=== PATIENT | female | born 1980 ===

== ENCOUNTER 2017-03-07 11:55 | Emergency (ER) | payer OTHER ==
[2017-03-07 11:55] VITALS: BMI 21.9
[2017-03-07] MEDS ORDERED: Sodium Chloride 0.9% 1,000 ML IV ONE (12:44)
[2017-03-07 13:03] LABS: HCG,QUALITATIVE URINE NEGATIVE (NEGATIVE)
[2017-03-07 13:06] LABS: SQUAMOUS EPITHIAL 9 /hpf (0-5); URINE BILIRUBIN NEGATIVE (NEGATIVE); URINE BLOOD NEGATIVE (NEGATIVE); URINE CLARITY Hazy (Clear); URINE COLOR Straw (YELLOW); URINE GLUCOSE (UA) NORMAL (Normal); URINE LEUKOCYTE ESTERASE NEG Leu/uL (Negative); URINE NITRATE NEGATIVE (NEGATIVE); URINE PROTEIN NEGATIVE (NEGATIVE); URINE UROBILINOGEN NORMAL mg/dL (0.2-1.0)
[2017-03-07 13:56] LABS: BASO % 0.4 % (0.0-2.0); EOS # 0.1 K/uL (0.0-0.7); EOS % 1.3 % (0.0-4.0); HEMOGLOBIN 12.8 g/dL (11.0-16.0); LYMPH # 1.8 K/uL (1.0-4.3); LYMPH % 23.9 % (20.0-40.0); MEAN CELL VOLUME 91.1 fL (81.0-99.0); MEAN CORPUSCULAR HEMOGLOBIN 29.5 pg (27.0-31.0); MEAN CORPUSCULAR HGB CONC 32.4 g/dL (33.0-37.0); MEAN PLATELET VOLUME 8.5 fL (7.2-11.7); MONO # 0.6 K/uL (0.0-0.8); MONO % 8.6 % (0.0-10.0); NEUT % 65.8 % (50.0-75.0); NRBC % 0.1 % (0.0-2.0); RBC 4.34 Mil/uL (3.80-5.20); RED CELL DISTRIBUTION WIDTH 13.4 % (11.5-14.5); WHITE BLOOD COUNT 7.5 K/uL (4.8-10.8)
[2017-03-07 14:04] LABS: ALBUMIN 3.7 g/dL (3.5-5.0)
[2017-03-07 14:07] LABS: ALB/GLOB RATIO 1.1 (1.0-2.1); AST/SGOT 22 U/L (14-36); BLOOD UREA NITROGEN 6 mg/dL (7-17); GFR AFRICAN-AMERICAN > 60; GFR NON-AFRICAN AMERICAN > 60
[2017-03-07 14:08] LABS: ALT/SGPT 27 U/L (9-52); CALCIUM 8.5 mg/dl (8.6-10.4)
--- NOTE | 2017-03-07 15:20 | C.PDOC ---
History Of Present Illness 36 y/o female presents to the ED with complaints of intermittent headache x5 days, diffuse pain, 3/10. Pt also reports pain around her waist radiating to lower abdomen. Pt denies fever, chills, URI symptoms, nausea, vomiting, dysuria or any other complaints. No history of or STD. Time Seen by Provider: 03/07/17 12:42 Chief Complaint (Nursing): Headache History Per: Patient History/Exam Limitations: no limitations Onset/Duration Of Symptoms: Days, Intermittent Episodes Current Symptoms Are (Timing): Still Present Severity: Mild Pain Scale Rating Of: 3 Quality: "Pain" Recent travel outside of the [place]: No Past Medical History Reviewed: Historical Data, Nursing Documentation, Vital Signs Vital Signs: Last Vital Signs Temp 97.9 F 03/07/17 16:10 Pulse 68 03/07/17 16:10 Resp 20 03/07/17 16:10 BP 95/62 L 03/07/17 16:10 Pulse Ox 99 03/07/17 16:10 Family History: States: Unknown Family Hx - Social History Hx Alcohol Use: No Hx Substance Use: No - Immunization History Hx Tetanus Toxoid Vaccination: No Hx Influenza Vaccination: No Hx Pneumococcal Vaccination: No Review Of Systems Except As Marked, All Systems Reviewed And Found Negative. Constitutional: Negative for: Fever, Chills Eyes: Negative for: Vision Change Respiratory: Negative for: Cough, Shortness of Breath Gastrointestinal: Positive for: Abdominal Pain. Negative for: Nausea, Vomiting Genitourinary: Negative for: Dysuria, Hematuria Neurological: Positive for: Headache Physical Exam - Physical Exam Appears: Non-toxic, No Acute Distress Skin: Warm, Dry, No Rash Head: Atraumatic, Normacephalic Ear(s): Bilateral: Normal Nose: Normal Oral Mucosa: Moist Throat: Normal, No Erythema Neck: Normal, Normal ROM, Supple Chest: Symmetrical Cardiovascular: Rhythm Regular, No Murmur Respiratory: Normal Breath Sounds, No Rales, No Rhonchi, No Wheezing Gastrointestinal/Abdominal: Soft, Tenderness (mild suprapubic), No Guarding, No Rebound Back: No CVA Tenderness Pelvic: Normal External Exam, No Vaginal Bleeding, No Vaginal Discharge, No Cervical Motion Tenderness, No Adnexal Tenderness, No Mass Neurological/Psych: Oriented x3, Normal Speech, Normal Cognition ED Course And Treatment - Laboratory Results Result Diagrams: 03/07/17 13:40 03/07/17 13:40 O2 Sat by Pulse Oximetry: 100 (room air) Pulse Ox Interpretation: Normal Progress Note: Plan: labs, UA, toradol Disposition Counseled Patient/Family Regarding: Studies Performed, Diagnosis, Need For Followup - Disposition Referrals: [facility] [Outside] Disposition: HOME/ ROUTINE Disposition Time: 16:33 Condition: STABLE Additional Instructions: Siga en la clinica. Prescriptions: Ibuprofen [Motrin] 600 mg PO TID #15 tab Instructions: Acute Abdominal Pain (DC) Forms: General Discharge Instructions - Clinical Impression Clinical Impression: Headache, Abdominal pain - Scribe Statement The provider has reviewed the documentation as recorded by the Nancy Pemberton Provider Attestation: All medical record entries made by the Nancy were at my direction and personally dictated by me. I have reviewed the chart and agree that the record accurately reflects my personal performance of the history, physical exam, medical decision making, and the department course for this patient. I have also personally directed, reviewed, and agree with the discharge instructions and disposition.
[2017-03-07 16:35] VITALS: O2SAT 100
[2017-03-07 16:41] VITALS: BP 93/50; PULSE 70; RESP 18; TEMP 97.8
== END 2017-03-07 16:47 | disposition home or self-care (01) ==
LOC: C.ER 11:55
DX: R51 Headache (principal); R10.9 Unspecified abdominal pain
CPT/HCPCS: 80053; 81001; 84703; 85025; 96361; 96374; 99285; J1885; J7040

== ENCOUNTER 2017-12-23 10:21 | Emergency (ER) | payer OTHER ==
[2017-12-23 10:21] VITALS: BMI 21.9
[2017-12-23 10:38] VITALS: BP 99/61; PULSE 63; RESP 15; TEMP 98; O2SAT 99
--- NOTE | 2017-12-23 11:05 | C.PDOC ---
History Of Present Illness 36 year old female presents to the ED new onset lower back pain radiating to her lower abdomen for the past 2 days. Patient reports pain with movement and bending down. Patient state she has not taken any pain medication for her symptoms. Patient denies injury, fall, trauma, weakness, numbness, saddle anesthesia, urinary/bowel incontinence. Time Seen by Provider: 12/23/17 10:49 Chief Complaint (Nursing): Back Pain History Per: Patient History/Exam Limitations: no limitations Onset/Duration Of Symptoms: Days Current Symptoms Are (Timing): Still Present Quality Of Discomfort: "Pain" Associated Symptoms: None Exacerbating Factor(s): Movement Recent travel outside of the [place]: No Additional History Per: Patient Past Medical History Reviewed: Historical Data, Nursing Documentation, Vital Signs Vital Signs: Last Vital Signs Temp 98 F 12/23/17 10:36 Pulse 63 12/23/17 10:36 Resp 15 12/23/17 10:36 BP 99/61 L 12/23/17 10:36 Pulse Ox 99 12/23/17 11:36 - Medical History PMH: No Chronic Diseases Surgical History: No Surg Hx Family History: States: Unknown Family Hx - Social History Hx Alcohol Use: No Hx Substance Use: No - Immunization History Hx Tetanus Toxoid Vaccination: No Hx Influenza Vaccination: No Hx Pneumococcal Vaccination: No Review Of Systems Constitutional: Negative for: Fever, Chills Cardiovascular: Negative for: Chest Pain Respiratory: Negative for: Shortness of Breath Gastrointestinal: Negative for: Abdominal Pain Genitourinary: Negative for: Dysuria, Incontinence, Hematuria Musculoskeletal: Positive for: Back Pain Skin: Negative for: Rash Neurological: Negative for: Weakness, Numbness Physical Exam - Physical Exam Appears: Non-toxic, No Acute Distress Skin: Normal Color, Warm, Dry Head: Atraumatic, Normacephalic Eye(s): bilateral: Normal Inspection Nose: No Discharge Oral Mucosa: Moist Chest: Symmetrical Cardiovascular: Rhythm Regular, No Murmur Respiratory: Normal Breath Sounds, No Rales, No Rhonchi, No Wheezing Gastrointestinal/Abdominal: Soft, No Tenderness, No Guarding, No Rebound Back: Muscle Spasm (lower back), Other (reproducible pain with movement ) Extremity: Normal ROM, No Tenderness, Capillary Refill (< 2 seconds), No Swelling Pulses: Left Dorsalis Pedis: Normal, Right Dorsalis Pedis: Normal Neurological/Psych: Oriented x3, Normal Motor, Normal Sensation Gait: Steady ED Course And Treatment O2 Sat by Pulse Oximetry: 99 (On RA) Pulse Ox Interpretation: Normal Medical Decision Making Medical Decision Making: Impression: lower back pain Plan: * Pain meds * UA Disposition Counseled Patient/Family Regarding: Studies Performed, Diagnosis, Need For Followup, Rx Given - Disposition Referrals: [facility] [Outside] [facility] [Outside] Disposition: HOME/ ROUTINE Disposition Time: 11:44 Condition: IMPROVED Prescriptions: Cyclobenzaprine [Flexeril] 10 mg PO TID #15 tab Ibuprofen [Motrin] 600 mg PO Q6 #30 tab Lidocaine 5% [Lidoderm] 1 ea TD PRN PRN #10 patch PRN Reason: Pain, Moderate (4-7) Instructions: Low Back Pain (DC) Forms: [facility] [employer] (Frisian), Work Excuse Print Language: SWEDISH - Clinical Impression Clinical Impression: Low back pain - Scribe Statement The provider has reviewed the documentation as recorded by the Scribe Tushar Ferguson All medical record entries made by the Scribe were at my direction and personally dictated by me. I have reviewed the chart and agree that the record accurately reflects my personal performance of the history, physical exam, medical decision making, and the department course for this patient. I have also personally directed, reviewed, and agree with the discharge instructions and disposition.
[2017-12-23 11:16] LABS: HCG,QUALITATIVE URINE NEGATIVE (NEGATIVE)
[2017-12-23] MEDS ORDERED: Lidocaine 5% Patch TD STA (11:22)
[2017-12-23 11:26] LABS: SQUAMOUS EPITHIAL 4 /hpf (0-5); URINE BILIRUBIN NEGATIVE (NEGATIVE); URINE BLOOD NEGATIVE (NEGATIVE); URINE CLARITY Clear (Clear); URINE COLOR Straw (YELLOW); URINE GLUCOSE (UA) NORMAL (Normal); URINE LEUKOCYTE ESTERASE NEG Leu/uL (Negative); URINE PROTEIN NEGATIVE (NEGATIVE); URINE UROBILINOGEN NORMAL mg/dL (0.2-1.0)
[2017-12-23] MEDS ORDERED: Lidocaine 5% Patch TD ONE (11:32)
== END 2017-12-23 11:49 | disposition home or self-care (01) ==
LOC: C.ER 10:21
DX: M54.5 Low back pain (principal)
CPT/HCPCS: 81001; 84703; 96372; 99283; J1885

== ENCOUNTER 2018-08-29 13:09 | Emergency (ER) | payer SELFPAY ==
[2018-08-29 13:10] VITALS: BMI 21.9
[2018-08-29 13:17] VITALS: RESP 18; O2SAT 100
[2018-08-29 14:10] LABS: BASO # 0.1 K/uL (0.0-0.2); BASO % 1.1 % (0.0-2.0); EOS % 0.9 % (0.0-4.0); HEMOGLOBIN 12.3 g/dL (11.0-16.0); LYMPH # 2.2 K/uL (1.0-4.3); MEAN CELL VOLUME 91.4 fL (81.0-99.0); MEAN CORPUSCULAR HEMOGLOBIN 30.9 pg (27.0-31.0); MEAN CORPUSCULAR HGB CONC 33.8 g/dL (33.0-37.0); MEAN PLATELET VOLUME 8.4 fL (7.2-11.7); MONO # 0.5 K/uL (0.0-0.8); MONO % 10.1 % (0.0-10.0); NEUT # 2.4 K/uL (1.8-7.0); NEUT % 45.9 % (50.0-75.0); RBC 3.99 Mil/uL (3.80-5.20); RED CELL DISTRIBUTION WIDTH 13.3 % (11.5-14.5); WHITE BLOOD COUNT 5.3 K/uL (4.8-10.8)
[2018-08-29 14:15] LABS: SQUAMOUS EPITHIAL 8 /hpf (0-5); URINE BACTERIA RARE (<OCC); URINE BILIRUBIN NEGATIVE (NEGATIVE); URINE BLOOD NEGATIVE (NEGATIVE); URINE CLARITY Hazy (Clear); URINE COLOR Yellow (YELLOW); URINE GLUCOSE (UA) NORMAL (Normal); URINE LEUKOCYTE ESTERASE NEG Leu/uL (Negative); URINE PROTEIN NEGATIVE (NEGATIVE); URINE UROBILINOGEN NORMAL mg/dL (0.2-1.0)
[2018-08-29 14:18] LABS: HCG,QUALITATIVE URINE NEGATIVE (NEGATIVE)
[2018-08-29 14:22] LABS: ALB/GLOB RATIO 1.3 (1.0-2.1); ALBUMIN 3.9 g/dL (3.5-5.0); ALT/SGPT 20 U/L (9-52); AST/SGOT 21 U/L (14-36); BLOOD UREA NITROGEN 9 mg/dL (7-17); CALCIUM 8.5 mg/dl (8.6-10.4); GFR NON-AFRICAN AMERICAN > 60; LIPASE 61 U/L (23-300)
--- NOTE | 2018-08-29 14:40 | C.PDOC ---
History Of Present Illness 37 years old female presents to ED for complaints of RLQ abdominal pain associated with nausea and constipation that began 5 days ago. Denies any other complaints. Time Seen by Provider: 08/29/18 13:31 Chief Complaint (Nursing): Abdominal Pain History Per: Patient History/Exam Limitations: no limitations Onset/Duration Of Symptoms: Days (5) Current Symptoms Are (Timing): Still Present Location Of Pain/Discomfort: RLQ Radiation Of Pain To:: None Associated Symptoms: Nausea, Constipation. denies: Fever, Chills, Vomiting, Diarrhea Exacerbating Factors: None Alleviating Factors: None Last Bowel Movement: Today Recent travel outside of the [place]: No Abnormal Vaginal Bleeding: No Past Medical History Reviewed: Historical Data, Nursing Documentation, Vital Signs Vital Signs: Last Vital Signs Temp 98.1 F 08/29/18 13:14 Pulse 69 08/29/18 13:14 Resp 18 08/29/18 13:14 BP 101/65 08/29/18 13:14 Pulse Ox 100 08/29/18 13:14 - Medical History PMH: No Chronic Diseases Surgical History: No Surg Hx Family History: States: Unknown Family Hx - Social History Hx Alcohol Use: No Hx Substance Use: No - Immunization History Hx Tetanus Toxoid Vaccination: No Hx Influenza Vaccination: No Hx Pneumococcal Vaccination: No Review Of Systems Constitutional: Negative for: Fever, Chills Gastrointestinal: Positive for: Nausea, Abdominal Pain (RLQ), Constipation. Negative for: Vomiting, Diarrhea Genitourinary: Negative for: Dysuria Skin: Negative for: Rash Neurological: Negative for: Weakness, Numbness Physical Exam - Physical Exam Appears: Non-toxic, No Acute Distress Skin: Normal Color, Warm, Dry, No Rash Head: Atraumatic, Normacephalic Eye(s): bilateral: Normal Inspection, PERRL, EOMI Oral Mucosa: Moist Neck: Normal ROM, Supple Chest: Symmetrical, No Tenderness Cardiovascular: Rhythm Regular, No Murmur Respiratory: Normal Breath Sounds, No Rales, No Rhonchi, No Wheezing, Other (NARD) Gastrointestinal/Abdominal: Soft, Tenderness (RLQ ), No Guarding, No Rebound Extremity: Normal ROM Extremity: Bilateral: Atraumatic, Normal Color And Temperature, Normal ROM Pulses: Left Radial: Normal, Right Radial: Normal Neurological/Psych: Oriented x3, Normal Speech Gait: Steady ED Course And Treatment - Laboratory Results Result Diagrams: 08/29/18 14:04 08/29/18 14:04 O2 Sat by Pulse Oximetry: 100 (RA) Pulse Ox Interpretation: Normal - CT Scan/US CT Abdomen/Pelvis Other Rad Studies (CT/US): Read By Radiologist, Radiology Report Reviewed CT/US Interpretation: Date of service: 08/29/2018. PROCEDURE: CT Abdomen and Pelvis with contrast. HISTORY: RLQ PAIN. COMPARISON: Noncontrast abdomen pelvis CT 10/21/2015. TECHNIQUE: Following oral and intravenous contrast administration, a CT examination of the abdomen and pelvis performed from the domes of the diaphragms to the symphysis pubis with reformatted datasets provided not only axial but also sagittal and coronal series. Coronal and sagittal reformats were generated. Contrast dose: Visipaque 320, 100 cc. Radiation dose: Total exam DLP = 266.47 mGy-cm. This CT exam was performed using one or more of the following dose reduction techniques: Automated exposure control, adjustment of the mA and/or kV according to patient size, and/or use of iterative reconstruction technique. FINDINGS: LOWER THORAX: Unremarkable. LIVER: Unremarkable. No gross lesion or ductal dilatation. GALLBLADDER AND BILE DUCTS: A distended gallbladder is identified which is otherwise unremarkable appearing. PANCREAS: Unremarkable. No gross lesion or ductal dilatation. SPLEEN: Unremarkable. ADRENALS: Unremarkable. No mass. KIDNEYS AND URETERS: Unremarkable. No hydronephrosis. No solid mass. VASCULATURE: Unremarkable. No aortic aneurysm. No aortic atherosclerotic calcification or mural plaque present. BOWEL: Stomach is collapsed and poorly evaluated. Opacified small large-bowel loops appear unremarkable. No bowel obstruction. Relatively prominent amount retained fecal material scattered throughout the proximal and mid large bowel loops. No suspicious mural thickening appreciated throughout the small large-bowel or perienteric or pericolic reactive change. APPENDIX: The appendix appears coiled inferior to the cecal base with partial opacification oral contrast material. No definite pattern to suggest appendicitis at this time. PERITONEUM: No abdominal fluid collections a ppreciated there is limited right-sided pelvic fluid. No free intra peritoneal gas collection. LYMPH NODES: Unremarkable. No enlarged lymph nodes. BLADDER: Unremarkable. REPRODUCTIVE: 1.8 cm likely collapsing cyst is seen in the right adnexal compartment which may be the cause of limited pelvic fluid at the right adnexal compartment and cul-de-sac. Trace fluid may be present at the endomet rial cavity. Left adnexa compartment appears diffusely unremarkable. BONES: No acute fracture. OTHER FINDINGS: None. IMPRESSION: 1. No definite CT pattern suggest appendicitis at this time. 2. Likely partial rupture of right ovarian/adnexal cyst causing limited fluid in the cul-de-sac and right adnexa compartment. Trace fluid may be present the endometrial cavity. 3. Relatively prominent retained fecal material is identified at the ascending and mid large- bowel segments with limited volume at the distal segment. Reevaluation Time: 17:39 Reassessment Condition: Improved Medical Decision Making Medical Decision Making: Plan: * Blood work * Urinalysis * CT Abdomen/Pelvis Disposition Counseled Patient/Family Regarding: Studies Performed, Diagnosis - Disposition Disposition: HOSPITALIZED Disposition Time: 17:39 Condition: IMPROVED Prescriptions: Ibuprofen [Motrin] 600 mg PO Q6 #30 tab Instructions: Ovarian Cyst (DC) Forms: [employer] (Mauritian) Print Language: GREENLANDIC - Clinical Impression Clinical Impression: Ruptured ovarian cyst, Abdominal pain - Scribe Statement The provider has reviewed the documentation as recorded by the Nancy Posada All medical record entries made by the Jaleesaibeliel were at my direction and personally dictated by me. I have reviewed the chart and agree that the record accurately reflects my personal performance of the history, physical exam, medical decision making, and the department course for this patient. I have also personally directed, reviewed, and agree with the discharge instructions and disposition.
[2018-08-29] MEDS ORDERED: Iohexol 240 (50 ml) PO ONE (14:43)
[2018-08-29] MEDS ORDERED: Iohexol 240 (50 ml) ONE (14:52)
[2018-08-29] MEDS ORDERED: Iodixanol 320 mg/ml 150 ml Bottle IV ONE (16:51)
--- NOTE | 2018-08-29 17:36 | CT ---
Date of service: 08/29/2018 PROCEDURE: CT Abdomen and Pelvis with contrast HISTORY: RLQ PAIN COMPARISON: Noncontrast abdomen pelvis CT 10/21/2015. TECHNIQUE: Following oral and intravenous contrast administration, a CT examination of the abdomen and pelvis performed from the domes of the diaphragms to the symphysis pubis with reformatted datasets provided not only axial but also sagittal and coronal series. Coronal and sagittal reformats were generated. Contrast dose: Visipaque 320, 100 cc Radiation dose: Total exam DLP = 266.47 mGy-cm. This CT exam was performed using one or more of the following dose reduction techniques: Automated exposure control, adjustment of the mA and/or kV according to patient size, and/or use of iterative reconstruction technique. FINDINGS: LOWER THORAX: Unremarkable. LIVER: Unremarkable. No gross lesion or ductal dilatation. GALLBLADDER AND BILE DUCTS: A distended gallbladder is identified which is otherwise unremarkable appearing. PANCREAS: Unremarkable. No gross lesion or ductal dilatation. SPLEEN: Unremarkable. ADRENALS: Unremarkable. No mass. KIDNEYS AND URETERS: Unremarkable. No hydronephrosis. No solid mass. VASCULATURE: Unremarkable. No aortic aneurysm. No aortic atherosclerotic calcification or mural plaque present. BOWEL: Stomach is collapsed and poorly evaluated. Opacified small large-bowel loops appear unremarkable. No bowel obstruction. Relatively prominent amount retained fecal material scattered throughout the proximal and mid large bowel loops. No suspicious mural thickening appreciated throughout the small large-bowel or perienteric or pericolic reactive change. APPENDIX: The appendix appears coiled inferior to the cecal base with partial opacification oral contrast material. No definite pattern to suggest appendicitis at this time. PERITONEUM: No abdominal fluid collections appreciated there is limited right-sided pelvic fluid. No free intra peritoneal gas collection. LYMPH NODES: Unremarkable. No enlarged lymph nodes. BLADDER: Unremarkable. REPRODUCTIVE: 1.8 cm likely collapsing cyst is seen in the right adnexal compartment which may be the cause of limited pelvic fluid at the right adnexal compartment and cul-de-sac. Trace fluid may be present at the endometrial cavity. Left adnexa compartment appears diffusely unremarkable. BONES: No acute fracture. OTHER FINDINGS: None. IMPRESSION: 1. No definite CT pattern suggest appendicitis at this time. 2. Likely partial rupture of right ovarian/adnexal cyst causing limited fluid in the cul-de-sac and right adnexa compartment. Trace fluid may be present the endometrial cavity. 3. Relatively prominent retained fecal material is identified at the ascending and mid large-bowel segments with limited volume at the distal segment.
[2018-08-29 17:57] VITALS: BP 100/65; PULSE 65; TEMP 98.6
== END 2018-08-29 17:57 | disposition short-term general hospital (02) ==
LOC: C.ER 13:09
DX: R10.31 Right lower quadrant pain (principal); N83.201 Unspecified ovarian cyst, right side
CPT/HCPCS: 74177; 80053; 81001; 83690; 84703; 85025; 99285; Q9966; Q9967

== ENCOUNTER 2018-12-07 23:26 | Emergency (ER) | payer SELFPAY ==
[2018-12-07 23:26] VITALS: BMI 21.9
[2018-12-07 23:42] VITALS: RESP 20
[2018-12-08] MEDS ORDERED: Alum-Mag Hydrox-Simethicone Susp (30 mL) PO STA (01:06)
[2018-12-08] MEDS ORDERED: Sodium Chloride 0.9% 1,000 ML IV STA (01:06)
--- NOTE | 2018-12-08 01:08 | C.PDOC ---
History Of Present Illness 37 y/o F c no PMHx p/w abdominal pain x 6 days. Pain is suprapubic, associated with dysuria and nausea. Also reports epigastric pain. Denies fever, vomiting, dyspnea, chills, constipation, diarrhea, bleeding. Time Seen by Provider: 12/08/18 01:03 Chief Complaint (Nursing): Abdominal Pain Past Medical History Vital Signs: Last Vital Signs Temp 98.1 F 12/07/18 23:39 Pulse 66 12/07/18 23:39 Resp 20 12/07/18 23:39 BP 143/89 12/07/18 23:39 Pulse Ox 100 12/07/18 23:39 Family History: States: Unknown Family Hx - Social History Hx Alcohol Use: No Hx Substance Use: No - Immunization History Hx Tetanus Toxoid Vaccination: No Hx Influenza Vaccination: No Hx Pneumococcal Vaccination: No Review Of Systems Except As Marked, All Systems Reviewed And Found Negative. Constitutional: Negative for: Fever Cardiovascular: Negative for: Chest Pain Physical Exam - Physical Exam Additional Physical Exam Comments: Constitutional: No acute distress. Head: Normocephalic. Atraumatic. Eyes: PERRL. ENT: Moist mucous membranes. Neck: Supple. Cardiovascular: Regular rate. Radial pulse 2+ bilaterally. Chest: No tenderness. Respiratory: Clear to auscultation bilaterally. GI: Soft. Nontender. Nondistended. Back: No CVA tenderness. Musculoskeletal: No tenderness or swelling of extremities. Skin: No rash. Neurologic: Alert, no focal deficit. ED Course And Treatment - Laboratory Results Result Diagrams: 12/08/18 01:21 12/08/18 01:21 O2 Sat by Pulse Oximetry: 100 (Room air) Pulse Ox Interpretation: Normal Medical Decision Making Medical Decision Making: Labs unremarkable. UA negative. Repeat abdominal exam shows only epigastric tenderness without rebound or guarding. Advised f/u GI, instructed to return to ED for worsening pain, fever, vomiting, dyspnea, or any other problem. Disposition - Disposition Referrals: Adriel Mcmahon MD [Staff Provider] - Disposition: HOME/ ROUTINE Disposition Time: 02:59 Condition: GOOD Prescriptions: Famotidine/Ca Carb/Mag Hydrox [Pepcid Complete Tablet Chew] 1 each PO BID #28 tab.chew Instructions: Gastritis Forms: [employer] (Mongolian), Work Excuse Print Language: AMHARIC - Clinical Impression Clinical Impression: Abdominal pain
[2018-12-08 01:12] LABS: HCG,QUALITATIVE URINE NEGATIVE (NEGATIVE)
[2018-12-08 01:14] LABS: SQUAMOUS EPITHIAL 5 /hpf (0-5); URINE BILIRUBIN NEGATIVE (NEGATIVE); URINE BLOOD NEGATIVE (NEGATIVE); URINE CLARITY Clear (Clear); URINE COLOR Straw (YELLOW); URINE GLUCOSE (UA) 1+ mg/dL (Normal); URINE LEUKOCYTE ESTERASE TRACE Leu/uL (Negative); URINE PROTEIN NEGATIVE (NEGATIVE); URINE UROBILINOGEN NORMAL mg/dL (0.2-1.0)
[2018-12-08] MEDS ORDERED: Alum-Mag Hydrox-Simethicone Susp (30 mL) ONE (01:22)
[2018-12-08 01:24] LABS: BASO % 0.6 % (0.0-2.0); EOS # 0.1 K/uL (0.0-0.7); EOS % 1.7 % (0.0-4.0); HEMOGLOBIN 12.7 g/dL (11.0-16.0); LYMPH # 2.7 K/uL (1.0-4.3); LYMPH % 44.1 % (20.0-40.0); MEAN CELL VOLUME 91.4 fL (81.0-99.0); MEAN CORPUSCULAR HEMOGLOBIN 30.9 pg (27.0-31.0); MEAN CORPUSCULAR HGB CONC 33.8 g/dL (33.0-37.0); MEAN PLATELET VOLUME 7.7 fL (7.2-11.7); MONO # 0.6 K/uL (0.0-0.8); MONO % 9.8 % (0.0-10.0); NEUT # 2.7 K/uL (1.8-7.0); NEUT % 43.8 % (50.0-75.0); NRBC % 0.1 % (0.0-2.0); RBC 4.12 Mil/uL (3.80-5.20); WHITE BLOOD COUNT 6.2 K/uL (4.8-10.8)
[2018-12-08 01:42] LABS: ALB/GLOB RATIO 1.6 (1.0-2.1); ALBUMIN 3.8 g/dL (3.5-5.0); ALT/SGPT 8 U/L (9-52); AST/SGOT 20 U/L (14-36); BLOOD UREA NITROGEN 9 mg/dL (7-17); CALCIUM 8.5 mg/dl (8.6-10.4); GFR NON-AFRICAN AMERICAN > 60; LIPASE 90 U/L (23-300)
[2018-12-08 03:28] VITALS: BP 140/80; PULSE 80; TEMP 98; O2SAT 98
== END 2018-12-08 03:26 | disposition home or self-care (01) ==
LOC: C.ER 23:26
DX: R10.13 Epigastric pain (principal)
CPT/HCPCS: 80053; 81001; 83690; 84703; 85025; 87086; 96361; 96374; 96375; 99283; J2405; J7030

== ENCOUNTER 2019-01-04 13:00 | Outpatient (CLI) | payer SELFPAY | END 2019-01-04 13:01 | disposition home or self-care (01) | LOC: C.USIC 13:00 ==

== ENCOUNTER 2019-01-09 19:16 | Emergency (ER) | payer SELFPAY ==
[2019-01-09 19:16] VITALS: BMI 21.9
[2019-01-09 19:31] VITALS: BP 104/71; PULSE 89; RESP 20; TEMP 98.8; O2SAT 100
[2019-01-09 20:00] LABS: HCG,QUALITATIVE URINE NEGATIVE (NEGATIVE)
[2019-01-09 20:02] LABS: SQUAMOUS EPITHIAL 1 /hpf (0-5); URINE BACTERIA FEW (<OCC); URINE BILIRUBIN NEGATIVE (NEGATIVE); URINE BLOOD 3+ (NEGATIVE); URINE CLARITY Hazy (Clear); URINE COLOR Yellow (YELLOW); URINE GLUCOSE (UA) NORMAL (Normal); URINE LEUKOCYTE ESTERASE 3+ Leu/uL (Negative); URINE PROTEIN NEGATIVE (NEGATIVE); URINE UROBILINOGEN NORMAL mg/dL (0.2-1.0)
--- NOTE | 2019-01-09 20:22 | C.PDOC ---
History Of Present Illness Patient is a 38 year old female who presents to the ED c/o dysuria, hematuria, and frequency for the past day. Patient states that the pain radiates to her lower back. She denies any nausea, vomiting, fever, or chills. Time Seen by Provider: 01/09/19 19:37 Chief Complaint (Nursing): Female Genitourinary History Per: Patient History/Exam Limitations: no limitations Onset/Duration Of Symptoms: Days (1) Current Symptoms Are (Timing): Still Present Quality Of Discomfort: "Pain" Associated Symptoms: Urinary Symptoms. denies: Fever, Chills, Nausea, Vomiting Recent travel outside of the [place]: No Additional History Per: Patient Past Medical History Reviewed: Historical Data, Nursing Documentation, Vital Signs Vital Signs: Last Vital Signs Temp 98.8 F 01/09/19 19:28 Pulse 89 01/09/19 19:28 Resp 20 01/09/19 19:28 BP 104/71 01/09/19 19:28 Pulse Ox 100 01/09/19 19:28 Primary Care Provider: Orlando Don Surg - Medical History PMH: No Chronic Diseases Surgical History: No Surg Hx Family History: States: Unknown Family Hx - Social History Hx Alcohol Use: No Hx Substance Use: No - Immunization History Hx Tetanus Toxoid Vaccination: No Hx Influenza Vaccination: No Hx Pneumococcal Vaccination: No Review Of Systems Constitutional: Negative for: Fever, Chills Gastrointestinal: Negative for: Nausea, Vomiting Genitourinary: Positive for: Dysuria, Frequency, Hematuria Physical Exam - Physical Exam Appears: Non-toxic, No Acute Distress Skin: Warm, Dry, No Rash Head: Atraumatic, Normacephalic Eye(s): bilateral: Normal Inspection Oral Mucosa: Moist Neck: Normal ROM, Supple Chest: Symmetrical, No Deformity Cardiovascular: Rhythm Regular, No Murmur Respiratory: Normal Breath Sounds, No Rales, No Rhonchi, No Wheezing Gastrointestinal/Abdominal: Soft, No Tenderness, No Distention Back: Normal Inspection, No CVA Tenderness Extremity: Normal ROM, No Tenderness, No Swelling Neurological/Psych: Oriented x3, Normal Motor, Normal Sensation Gait: Steady ED Course And Treatment - Laboratory Results Lab Results: Urine Color Yellow (YELLOW) 01/09/19 19:53 Urine Clarity Hazy (Clear) 01/09/19 19:53 Urine pH 6.0 (5.0-8.0) 01/09/19 19:53 Ur Specific [place] 1.006 (1.003-1.030) 01/09/19 19:53 Urine Protein Negative mg/dL (NEGATIVE) 01/09/19 19:53 Urine Glucose (UA) Normal mg/dL (Normal) 01/09/19 19:53 Urine Ketones Negative mg/dL (NEGATIVE) 01/09/19 19:53 Urine Blood 3+ (NEGATIVE) H 01/09/19 19:53 Urine Nitrate Negative (NEGATIVE) 01/09/19 19:53 Urine Bilirubin Negative (NEGATIVE) 01/09/19 19:53 Urine Urobilinogen Normal mg/dL (0.2-1.0) 01/09/19 19:53 Ur Leukocyte Esterase 3+ [place]/uL (Negative) H 01/09/19 19:53 Urine WBC (Auto) 32 /hpf (0-5) H 01/09/19 19:53 Urine RBC (Auto) 19 /hpf (0-3) H 01/09/19 19:53 Ur Squamous Epith Cells 1 /hpf (0-5) 01/09/19 19:53 Urine Bacteria Few (<OCC) H 01/09/19 19:53 Urine HCG, Qual Negative (NEGATIVE) 01/09/19 19:53 Urine HCG, Qual Negative (NEGATIVE) 01/09/19 19:53 O2 Sat by Pulse Oximetry: 100 (on RA) Pulse Ox Interpretation: Normal Medical Decision Making Medical Decision Making: Plan: UA Urine Culture Cipro 500mg PO Pyridium 200mg PO Urine positive for UTI Disposition - Disposition Referrals: [facility] [Outside] Disposition: HOME/ ROUTINE Disposition Time: 20:49 Condition: GOOD Additional Instructions: Follow up with the medical doctor within 1-2 days. 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 - Scribe Statement The provider has reviewed the documentation as recorded by the Scribe Uzma Pych All medical record entries made by the Nancy were at my direction and personally dictated by me. I have reviewed the chart and agree that the record accurately reflects my personal performance of the history, physical exam, medical decision making, and the department course for this patient. I have also personally directed, reviewed, and agree with the discharge instructions and disposition.
== END 2019-01-09 21:00 | disposition home or self-care (01) ==
LOC: C.ER 19:16
DX: N39.0 Urinary tract infection, site not specified (principal)